=== PATIENT | female | born 1995 | race Caucasian/White ===

== ENCOUNTER 2018-03-02 22:20 | Emergency (ER) | payer OTHER ==
[2018-03-02 22:25] VITALS: BP 114/83
--- NOTE | 2018-03-02 22:41 | EDPHY ---
H & P Time Seen by Provider: 03/02/18 22:27 HPI/ROS: CHIEF COMPLAINT: Poison antelmo HISTORY OF PRESENT ILLNESS: 22-year-old immunocompetent female complaining of 5 days of likely poison antelmo dermatitis primarily to the left antecubital fossa however few other discrete areas. She was seen at [facility] received an intramuscular steroid injection which provided transient relief however symptoms have now returned. She denies pain. Denies or pharyngeal involvement. Denies genitalia involvement. PHYSICAL EXAM (Prior to examination, patient consented to physical exam, hands were washed and my usual and customary physical exam procedures followed) 1) GENERAL: Well-developed, well-nourished, alert and oriented. Appears to be in no acute distress. 2) HEAD: Normocephalic 3) HEENT: sclera anicteric 4) LUNGS: Breathing comfortably. 5) SKIN: The patient's left antecubital fossa she has been area of erythema and vesicles and excoriation with no signs of super infection. No lymphangitic streaking. This is consistent with poison antelmo dermatitis. Soft compartments. Neurovascular intact distally. 6) MUSCULOSKELETAL: Soft compartments. Smoking Status: Never smoked Constitutional: Initial Vital Signs Heart Rate 62 03/02/18 22:23 Respiratory Rate 18 03/02/18 22:23 Blood Pressure 114/83 H 03/02/18 22:23 O2 Sat (%) 97 03/02/18 22:23 O2 Delivery Mode Room Air Allergies/Adverse Reactions: No Known Allergies Allergy (Unverified 03/02/18 22:21) MDM/Departure - [facility] ED Course/Re-evaluation: Patient has findings consistent with poison antelmo contact dermatitis. These are small areas I do not think the benefits of systemic steroids outweigh the risks. She has no evidence of super infection. We discussed usual and customary poison antelmo precautions and instructions. I saw this patient independently based on established practice protocols. Care of patient under supervision of secondary supervising physician Dr Morillo . - Depart Disposition: Home, Routine, Self-Care Clinical Impression: Poison antelmo dermatitis Condition: Good Instructions: Contact Dermatitis (ED) Additional Instructions: Try not to itch the area. You may apply topical anti-itch cream. Referrals: [facility],. [Clinic] - 2-3 days, call for appt.
== END 2018-03-02 22:54 | disposition home or self-care (01) ==
DX: L23.7 Allergic contact dermatitis due to plants, except food (principal)